=== PATIENT | male | born 1950 | race Two or more races ===

== ENCOUNTER → 2022-03-26 | Outpatient (CLI) | payer OTHER | END | disposition home or self-care (01) | LOC: LAB 09:14 | PROVIDERS: ATTEND Podiatrist Foot & Ankle Surgery | DX: D18.09 Hemangioma of other sites (principal); B07.9 Viral wart, unspecified; B35.1 Tinea unguium; E11.8 Type 2 diabetes mellitus with unspecified complications; L84 Corns and callosities ==